=== PATIENT | female | born 1985 | race Caucasian/White ===

== ENCOUNTER 2021-02-22 17:04 | Inpatient (IN) | payer OTHER ==
[~2021-02-22 17:04] MED LIST: FLEXERIL 10 MG10 MG PO; IBUPROFEN600 MG PO; MEDROL4 MG PO; NORFLEX 100 MG100 MG PO
[2021-02-22 23:14] LABS: HEMOGLOBIN 13.1 gm/dl (12.3-15.3); RED BLOOD COUNT 4.95 M/UL (4.00-5.10); WHITE BLOOD COUNT 9.4 K/UL (4.5-11.0)
[2021-02-23] MEDS ORDERED: SUBUTEX 8 MG TAB8 MG GT (06:50)
[2021-02-23] MEDS ORDERED: COLACE 100MG C100 MG PO (11:45)
[2021-02-23] MEDS ORDERED: IBUPROFEN600 MG PO (11:45)
[2021-02-23] MEDS ORDERED: FERROUS SULFAT325 MG PO (11:45)
[2021-02-25 14:14] LABS: RPR Reactive (Non Reactive); TREPONEMA PALLIDUM ANTIBODIES Reactive (Non Reactive)
== END 2021-02-23 16:57 | disposition home or self-care (01) | DRG 806 ==
LOC: GENOP 17:04 → OB 23:08 → GENOP 23:08 → OB 02-23 07:54
PROVIDERS: ADMIT Obstetrics & Gynecology
PROC: 10E0XZZ Delivery of Products of Conception, External Approach (ICD-10-PCS; principal; 2021-02-23)
PROC: 10907ZC Drainage of Amniotic Fluid, Therapeutic from Products of Conception, Via Natural or Artificial Opening (ICD-10-PCS; 2021-02-23)
PROC: 3E033VJ Introduction of Other Hormone into Peripheral Vein, Percutaneous Approach (ICD-10-PCS; 2021-02-23)
PROC: 4A1H8CZ Monitoring of Products of Conception, Cardiac Rate, Via Natural or Artificial Opening Endoscopic (ICD-10-PCS; 2021-02-23)
PROC: 10H073Z Insertion of Monitoring Electrode into Products of Conception, Via Natural or Artificial Opening (ICD-10-PCS; 2021-02-23)
PROC: 10H07YZ Insertion of Other Device into Products of Conception, Via Natural or Artificial Opening (ICD-10-PCS; 2021-02-23)
PROC: 3E0234Z Introduction of Serum, Toxoid and Vaccine into Muscle, Percutaneous Approach (ICD-10-PCS; 2021-02-23)
DX: O98.42 Viral hepatitis complicating childbirth (principal); O98.12 Syphilis complicating childbirth; Z37.0 Single live birth; O99.324 Drug use complicating childbirth; O99.334 Smoking (tobacco) complicating childbirth; Z20.822 Contact with and (suspected) exposure to COVID-19; Z96.653 Presence of artificial knee joint, bilateral; B19.20 Unspecified viral hepatitis C without hepatic coma; Z3A.38 38 weeks gestation of pregnancy; Z90.49 Acquired absence of other specified parts of digestive tract; Z98.890 Other specified postprocedural states; Z23 Encounter for immunization
CPT/HCPCS: 36415; 80307; 81001; 83518; 85025; 86592; 90471; 90715; J2590; U0002